=== PATIENT | female | born 1985 | race Two or more races ===

== ENCOUNTER → 2020-07-18 | Outpatient (CLI) | payer OTHER | END | disposition home or self-care (01) | LOC: OFIC 805 15:00 | PROVIDERS: ATTEND Otolaryngology Otology & Neurotology | DX: J01.80 Other acute sinusitis (principal); J30.89 Other allergic rhinitis ==

== ENCOUNTER 2021-01-11 14:04 | Outpatient (CLI) | payer OTHER | END 2021-01-11 15:15 | disposition home or self-care (01) | LOC: PRENATAL 14:04 | PROVIDERS: ATTEND Obstetrics & Gynecology Maternal & Fetal Medicine | DX: Z36.89 Encounter for other specified antenatal screening (principal); O36.80X1 Pregnancy with inconclusive fetal viability, fetus 1; O09.521 Supervision of elderly multigravida, first trimester; Z3A.11 11 weeks gestation of pregnancy ==

== ENCOUNTER 2021-03-13 15:43 | Outpatient (CLI) | payer OTHER | END 2021-03-13 17:04 | disposition home or self-care (01) | LOC: PRENATAL 15:43 | PROVIDERS: ATTEND Obstetrics & Gynecology Maternal & Fetal Medicine | DX: O35.0XX1 Maternal care for (suspected) central nervous system malformation in fetus, fetus 1 (principal); O35.3XX1 Maternal care for (suspected) damage to fetus from viral disease in mother, fetus 1; O98.512 Other viral diseases complicating pregnancy, second trimester; O09.522 Supervision of elderly multigravida, second trimester; Z36.89 Encounter for other specified antenatal screening; Z3A.20 20 weeks gestation of pregnancy ==

== ENCOUNTER 2021-06-05 15:44 | Outpatient (CLI) | payer OTHER | END 2021-06-05 17:21 | disposition home or self-care (01) | LOC: PRENATAL 15:44 | PROVIDERS: ATTEND Obstetrics & Gynecology Maternal & Fetal Medicine | DX: O26.843 Uterine size-date discrepancy, third trimester (principal); O09.523 Supervision of elderly multigravida, third trimester; O24.410 Gestational diabetes mellitus in pregnancy, diet controlled; O36.8131 Decreased fetal movements, third trimester, fetus 1; Z36.89 Encounter for other specified antenatal screening; Z3A.33 33 weeks gestation of pregnancy ==

== ENCOUNTER 2021-07-10 12:45 | Inpatient (IN) | payer OTHER ==
[~2021-07-10] VITALS: Ht 160 cm; Wt 3.2 kg
[2021-07-23] MEDS ORDERED: PRENATAL TABLE1 EAC1 PO (05:28)
[2021-07-29] MEDS ORDERED: IBU800 MG PO (12:42)
[2021-07-29] MEDS ORDERED: SURFAK240 M1 PO (12:42)
== END 2021-07-29 13:21 | disposition home or self-care (01) | DRG 788 ==
LOC: LDR 07-26 05:44 → SURG-SUITE 07-26 22:38 → OB/GYN 07-26 22:57
PROVIDERS: Obstetrics & Gynecology; ADMIT Student in an Organized Health Care Education/Training Program; ATTEND Student in an Organized Health Care Education/Training Program
PROC: 4A1HXCZ Monitoring of Products of Conception, Cardiac Rate, External Approach (ICD-10-PCS; 2021-07-26)
PROC: 10D00Z1 Extraction of Products of Conception, Low, Open Approach (ICD-10-PCS; principal; 2021-07-26 20:45)
DX: O62.0 Primary inadequate contractions (principal); O62.1 Secondary uterine inertia; Z3A.39 39 weeks gestation of pregnancy; Z37.0 Single live birth; Z20.822 Contact with and (suspected) exposure to COVID-19

== ENCOUNTER 2021-07-10 15:39 | Outpatient (CLI) | payer OTHER | END 2021-07-10 16:17 | disposition home or self-care (01) | LOC: PRENATAL 15:39 | PROVIDERS: ATTEND Obstetrics & Gynecology Maternal & Fetal Medicine | DX: O26.849 Uterine size-date discrepancy, unspecified trimester (principal); O09.529 Supervision of elderly multigravida, unspecified trimester; O35.0XX0 Maternal care for (suspected) central nervous system malformation in fetus, not applicable or unspecified; O36.8199 Decreased fetal movements, unspecified trimester, other fetus ==

== ENCOUNTER 2021-07-23 04:58 | Outpatient (CLI) | payer OTHER ==
[2021-07-23] MEDS ORDERED: PRENATAL TABLE1 EAC1 PO (05:28)
== END 2021-07-23 10:40 | disposition home or self-care (01) ==
LOC: OBS/DEL 04:58 → LDR 07:01 → OBS/DEL 07:05
PROVIDERS: ATTEND Student in an Organized Health Care Education/Training Program
DX: O24.913 Unspecified diabetes mellitus in pregnancy, third trimester (principal); Z3A.39 39 weeks gestation of pregnancy

== ENCOUNTER 2021-11-12 13:11 | Inpatient (IN) | payer OTHER ==
[~2021-11-12] VITALS: Ht 160 cm; Wt 72.6 kg
[~2021-11-12 13:11] MED LIST: IBU800 MG PO; PRENATAL TABLE1 EAC1 PO; SURFAK240 M1 PO
--- NOTE | 2021-11-12 13:58 | NUR ---
SE RECIBE PTE ALERTA Y ORIENTADA X3. PTE REFIERE DOLOR ABDOMINAL EN LADO DERECHO. FUE REFERIDA A YEIMI DE EMERGENCIA POR DR. REZA, LE INFORMO DE PAULA PROBABLE COLESISTITIS AGUDA. SE MONITOREAN S/V Y SE UBICA PTE EN TYRESE.
--- NOTE | 2021-11-12 15:25 | NUR ---
PACIENTE EVALUADA POR LA YOANDY.ARANA QUIEN ORDENA TRATAMIENTO MEDICO. SE ORIENTA PACIENTE SOBRE EL MISMO ESTA REFIERE ENTENDER. KAYLYN ORTIZ REALIZA MUESTRAS DE LABORATORIO BAJO MEDIDAS ASEPTICAS Y ADMINISTRA MEDICAMENTOS CHUCK ORDEN. PTE EN ESPERA DE SONOGRAMA ABDOMINAL.
[2021-11-14] MEDS ORDERED: AMOXICILLIN500 M1 PO (18:26)
== END 2021-11-14 20:26 | disposition home or self-care (01) | DRG 446 ==
LOC: ER 13:11 → SURH 21:26 → SEC-K 21:26 → SURH 11-13 03:00
PROVIDERS: ADMIT Colon & Rectal Surgery; ATTEND Colon & Rectal Surgery
DX: K80.00 Calculus of gallbladder with acute cholecystitis without obstruction (principal); R10.11 Right upper quadrant pain; Z20.822 Contact with and (suspected) exposure to COVID-19